=== PATIENT | female | born 1995 | race Two or more races ===

== ENCOUNTER 2025-07-18 17:59 | Emergency (ER) | payer OTHER, MEDICAID, SELFPAY ==
[2025-07-18 18:16] VITALS: BP 130/81; PULSE 80; RESP 18; TEMP 37.1; O2SAT 99; BMI 23.4
--- NOTE | 2025-07-18 18:19 | XR_ITS ---
EXAMINATION: Upright PA chest single view TECHNIQUE: 1. Upright PA chest single view Date and time: July 18, 2025, 1821 hours, comparison December 03, 2007 INDICATIONS: Coughing 2 weeks. FINDINGS: Significant bibasilar pneumonia Normal heart size Herminio structures are intact IMPRESSION: Significant bibasilar pneumonia
--- NOTE | 2025-07-18 18:47 | PD.EDSOB ---
ED SOB =RME/HPI General Chief Complaint: Flu Like Symptoms Stated Complaint: COUGH AND WEAKNESS Time Seen by Provider: 07/18/25 18:32 Arrival date/time: 07/18/25 17:59 29F with no significant PMH presents to ED with 2 weeks of cough and some fatigue/weakness today. Patient is on day 3 or 4 of Augmentin. Limitations: no limitations Related Data Previous Rx's ?Medication ?Instructions ?Recorded inhalational spacing device #1 ea 10/18/14 (Aerochamber with Flowsignal) azithromycin 250 mg tablet See Rx Instructions PO .COMPLEX #6 07/18/25 tabs Allergies Allergy/AdvReac Type Severity Reaction Status Date / Time NKA* Allergy Uncoded 07/18/25 18:01 Review of Systems Review of Systems Systems Reviewed: All systems reviewed, normal except as documented Constitutional Constitutional: Reports as per HPI and Reports fatigue Respiratory Respiratory: Reports as per HPI and Reports cough Endocrine Endocrine: Reports fatigue Past Medical History Social History SMOKING STATUS: Never smoker ED Exam General Limitations: Present no limitations General appearance: Present alert and in no apparent distress Head Head exam: Present atraumatic Neck Neck exam: Present normal inspection, full ROM and trachea midline Chest Chest inspection: Present normal inspection and symmetric chest wall rise Expanded Respiratory Exam Location: Left: rales and Right: rales Neurological Exam Neurological exam: Present alert and oriented X3 Psychiatric Psychiatric exam: Present normal affect and normal mood Skin Skin exam: Present warm, dry, intact and normal color Course Quality Measures none Orders Category Date Time Status XR chest 1V portable Stat Exams 07/18/25 18:19 Completed CBC Stat Lab 07/18/25 18:55 Completed CMP [Comprehensive Metabolic Panel] Stat Lab 07/18/25 18:55 Completed Cocci Serology IgM with reflex to IgG [Cocci Serology, Lab 07/18/25 18:55 Received Unk History] Stat Procalcitonin Stat Lab 07/18/25 18:55 Completed cefTRIAXone [Rocephin] 1,000 mg Med 07/18/25 19:50 Discontinued Lidocaine 1% Pf Vial 5ml [Xylocaine 1% 5 ml] 2.1 ml IM X1 Vital Signs Vital signs: Vital Signs Temperature 98.7 F 07/18/25 18:16 Pulse Rate 80 07/18/25 18:16 Respiratory Rate 18 07/18/25 18:16 Blood Pressure 130/81 07/18/25 18:16 Pulse Oximetry (%) 99 07/18/25 18:16 Oxygen Delivery Method Room Air 07/18/25 18:16 O2 at 99% on RA and WNLs Shortness of Breath / Dyspnea MDM Narrative MDM Narrative:: 29F with no significant PMH presents to ED with 2 weeks of cough and some fatigue/weakness today. Patient is on day 3 or 4 of Augmentin. Physical exam reveals some crackles in lungs. Normal WOB. Patient is afebrile, calm, and alert. XR reveals significant PNA. No leukocytosis. CMP unremarkable. Procal normal. Cocci pending at time of DC. Will add Z-gabriela for atypical coverage. Rocephin and skilled nursing facility counselor given. Patient data External records reviewed:: [facility] previous records Clinical information provided by:: patient Social determinants that could affect healthcare access:: none Patient has the following chronic illnesses:: none How is presenting disease/condition affected by chronic disease/condition?: no chronic disease Evaluation data The following diagnostics were reviewed and interpreted by me:: lab results and radiology exam(s) Lab and/or radiology exams considered but not ordered:: ordered Interpretation Summary: above Medications / Prescriptions Medications or Prescriptions considered but not ordered:: ordered Medication administrations:: Medication Administration History Discontinued Medications Ceftriaxone Sodium 1,000 mg/ (Lidocaine HCl 2.1 ml) 0 mg IM X1 ONE Stop: 07/18/25 19:51 above Consultations Consultation(s) initiated? (list below): No Diagnosis Shortness of Breath Differential Diagnosis: acute exacerbation of chronic obstructive airways disease, congestive heart failure, community acquired pneumonia, asthma with exacerbation, pulmonary embolism and other (Valley Fever) Most likely diagnosis given after review of the tests above:: CAP Admission Indicated Admission indicated?: not indicated Admission Request Was there a request for admission?: No Disposition Plan Disposition Plan: Discharge Discharge Attestation Discharge Attestation: The patient and all family members were given an opportunity to ask questions and understood the discharge instructions. Discharge instructions specifically effects, indications for sooner follow up or return to the emergency department, and the expected course of current diagnosis. Patient condition: Stable Discharge Plan Plan Patient Disposition: HOME (Self Care) Discharge Disposition comment: Stable Prescriptions/Referrals Prescriptions/Med Rec: New azithromycin 250 mg tablet See Rx Instructions .ROUTE .COMPLEX Qty: 6 0RF Rx Instructions: For 250 mg dose pack: take 500 mg today (day 1), then 250 mg for 4 days (days 2-5) No Action (DME) inhalational spacing device [Aerochamber with Flowsignal] 1 INHALER inhaler 1 ea Inhalation Qty: 1 0RF Referrals: Avinash Mederos MD [Primary Care Provider, Family Practice] - In 1 week Problem List Clinical Impression: CAP (community acquired pneumonia) Patient/Caregiver Discharge Instructions Additional Instructions: Please follow-up with PCP within 24-48 hours and return immediately if symptoms worsen. Ibuprofen/Tylenol can be used simultaneously for greater fever/pain control. Benadryl is good for cough, congestion, and sleep. Finish prescribed Augmentin. Take new ABX along with it. Follow-up with Medical Records or Patient Portal about Valley Fever (cocci) results. Print Language: [place] Stand Alone Forms: Patient Portal Info Letter PA/RAMONITA Supervising Physician PAO/RAMONITA Supervising Physician: Dr. Smith
[2025-07-18 19:25] LABS: Basophils # (Auto) 0.1 Thou/mm3 (0.0-0.2); Basophils % (Auto) 1 % (0-2.5); Eosinophils # (Auto) 0.0 Thou/mm3 (0.0-0.5); Eosinophils % (Auto) 1 % (0-10); Hematocrit 42.3 % (36.0-46.0); Hemoglobin 13.9 g/dL (12.0-16.0); Immature Granulocytes Auto 0.02 Thou/mm3 (0.00-0.00); Lymphocytes # (Auto) 3.0 Thou/mm3 (1.0-4.8); Lymphocytes % (Auto) 42 % (10-50); Mean Corpuscular HGB Conc 32.9 g/dl (31.0-37.0); Mean Corpuscular Hemoglobin 31.2 pg (25.0-35.0); Mean Corpuscular Volume 95 fL (80-100); Monocytes # (Auto) 0.5 Thou/mm3 (0.0-0.8); Monocytes % (Auto) 8 % (0-12); Neutrophils # (Auto) 3.5 Thou/mm3 (1.8-7.7); Neutrophils % (Auto) 49 % (37-80); Platelet Count 348 Thou/mm3 (140-440); RDW Standard Deviation 43.5 fL (36.4-46.3); Red Blood Count 4.46 Miln/mm3 (4.00-5.20); White Blood Count 7.1 Thou/mm3 (3.6-11.0)
[2025-07-18 19:26] LABS: Nucleated Red Blood Cell # 0.00 Thou/mm3 (0.00-0.00); Nucleated Red Blood Cell % 0 /100 WBC (0)
[2025-07-18 19:49] LABS: Alanine Aminotransferase < 7 U/L (10-49); Albumin, Serum 4.8 gm/dL (3.5-5.0); Albumin/Globulin Ratio 1.5 (1.2-2.2); Alkaline Phosphatase 82 U/L (46-116); Anion Gap 8 (7-16); Aspartate Amino Transferase 10 U/L (0-34); BUN/Creatinine Ratio 9 Ratio (12-20); Bilirubin,Total 0.2 mg/dL (0.3-1.2); Blood Urea Nitrogen 8 mg/dL (9-23); Calcium 9.8 mg/dL (8.3-10.6); Calcium (Corrected) 9.8 mg/dL (8.5-10.1); Carbon Dioxide 28.8 mMol/L (20.0-31.0); Chloride 104 mMol/L (98-107); Creatinine (Component) 0.9 mg/dL (0.6-1.3); Estimated Creatinine Clearance 66.8 mL/min (>60); Globulin 3.3 gm/dL (2.3-3.5); Glucose 104 mg/dL (74-106); Osmolality,Calculated 279 (275-295); Potassium 4.2 mMol/L (3.4-5.1); Procalcitonin < 0.04 ng/ml (0.0-0.49); Sodium 141 mMol/L (136-145); Total Protein 8.1 gm/dL (5.7-8.2); eGFR > 60 See Note
[2025-07-19 15:14] LABS: Cocci Serology, IgM Negative (Negative)
[2025-07-21 14:03] LABS: Cocci Serology, IgG Negative (Negative)
== END 2025-07-18 20:25 | disposition home or self-care (01) ==
PROVIDERS: Physician Assistant; Emergency Provider Emergency Medicine; PCP Family Medicine
DX: J18.9 Pneumonia, unspecified organism (principal)
CPT/HCPCS: 36415; 71045; 80053; 84145; 85025; 86331; 86635; 96372; 99283; J0696; J3490